=== PATIENT | female | born 1975 | race Caucasian/White ===

== ENCOUNTER 2017-07-08 08:44 | Emergency (ER) | payer OTHER ==
[~2017-07-08] VITALS: Ht 167.6 cm; Wt 108.7 kg
[~2017-07-08 08:44] MED LIST: CAMILA0.35 MG PO; CLEOCIN300 MG PO; FLONASE ALLERG9.9 ML BOTH NARES; IBUPROFEN800 MG PO; PHENERGAN-CODE120 ML PO; PRENATAL TABLE1 EAC3 PO; PRESTIQ PO; ZYRTEC5 MG PO
[2017-07-08 09:30] LABS: HEMATOCRIT 36.6 % (36.0-46.0); MCH 32.3 PG (29.0-34.0); MCHC 35.5 G/DL (30.0-36.0); MCV 90.8 FL (83-99); PLATELET COUNT 174 K/uL (156-360); RBC DIS.WIDTH-CV 13.2 % (11.8-14.6); RBC DIS.WIDTH-SD 44.3 % (39-53); RED BLOOD COUNT 4.03 M/uL (3.80-5.20); WHITE BLOOD COUNT 7.8 K/uL (4.1-10.2)
[2017-07-08 09:42] LABS: ALBUMIN 3.6 g/dL (3.2-4.8); CHLORIDE 104 mEq/L (99-109); POTASSIUM 3.7 mEq/L (3.7-5.4); SODIUM 136 mEq/L (136-147)
[2017-07-08 09:44] LABS: GLUCOSE 97 mg/dL (70-99); TOTAL PROTEIN 6.7 g/dL (6.4-8.3)
[2017-07-08 09:46] LABS: TOTAL BILIRUBIN 0.8 mg/dL (0.0-1.0)
[2017-07-08 09:48] LABS: ALKALINE PHOSPHATASE 92 IU/L (3-129); CREATININE 0.7 mg/dL (0.6-1.3); GFR ESTIMATE (CALCULATED) > 59 mL/min/
[2017-07-08 09:49] LABS: UREA NITROGEN (BUN) 9 mg/dL (9-23)
[2017-07-08 09:50] LABS: AST (GOT) 12 IU/L (2-34)
[2017-07-08 09:51] LABS: ALT (GPT) 11 IU/L (3-49); TROP-I INTERPRETATION NEGATIVE; TROPONIN-I < 0.01 ng/mL (0.0-0.30)
[2017-07-08 10:16] LABS: QUANTITATIVE HCG 46466.5 MIU/ML
[2017-07-08 10:39] LABS: APPEARANCE CLOUDY ((CLEAR)); BILIRUBIN NEGATIVE; BLOOD SMALL; COLOR YELLOW ((YELLOW)); GLUCOSE (STRIP) NEGATIVE; KETONES NEGATIVE; LEUKOCYTES LARGE; NITRITE NEGATIVE; PROTEIN (STRIP) 30; UROBILINOGEN 0.2 MG/DL (0.2-1.0)
[2017-07-08 11:08] LABS: RED BLOOD CELLS 0-5 /HPF (0-5); WHITE BLOOD CELLS 30-40 /HPF (0-5)
[2017-07-08 11:09] LABS: BACTERIA 1+ /HPF; EPITHELIAL CELLS 2+ /HPF; MUCUS 1+ /LPF
[2017-07-08] MEDS ORDERED: ZOFRAN ODT4 MG PO (11:18)
[2017-07-08 12:16] VITALS: BP 97/65
== END 2017-07-08 12:20 | disposition home or self-care (01) ==
LOC: EME 08:44
PROVIDERS: Nurse Practitioner Family
DX: O21.9 Vomiting of pregnancy, unspecified (principal); E86.0 Dehydration; R50.9 Fever, unspecified; O09.522 Supervision of elderly multigravida, second trimester; Z3A.16 16 weeks gestation of pregnancy
CPT/HCPCS: 80053; 81003; 84484; 84702; 85027; 93005; 99281; 99285; J2405; J7030